=== PATIENT | male | born 1985 ===

== ENCOUNTER 2018-04-09 16:42 | Emergency (ER) | payer OTHER ==
[2018-04-09 16:54] VITALS: BP 124/76; PULSE 60; RESP 16; TEMP 98.6; O2SAT 99
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
--- NOTE | 2018-04-09 18:21 | CT ---
PROCEDURE: CT Cervical Spine without contrast HISTORY: Trauma ; rule out fracture. COMPARISON: None available. TECHNIQUE: Axial computed tomography images were obtained of the cervical spine without the use of intravenous contrast. Coronal and sagittal reformatted images were created and reviewed. Radiation dose: Total exam DLP = 479.67 mGy-cm. This CT exam was performed using one or more of the following dose reduction techniques: Automated exposure control, adjustment of the mA and/or kV according to patient size, and/or use of iterative reconstruction technique. . FINDINGS: VERTEBRAE: No evidence of acute compression fractures no retropulsed fragments. Vertebral bodies exhibit normal stature. There is straightening of the normal cervical lordosis which may be secondary to patient positioning in the gantry however underlying element of mild muscle spasm not excluded. Very minor DISCS/SPINAL CANAL/NEURAL FORAMINA: . Disc space heights are relatively maintained. Minor marginal anterior osteophyte formation seen at several levels. . At the C5-C6 level, there is a small asymmetric slightly broad-based bulge of the posterior annulus slightly larger on the right than left associate with a tiny calcification in the posterior annulus. The disc bulge results in some mild flattening of the ventral surface of the spinal cord. Central canal appears slightly narrowed. Exit foramina adequate. At the C4-C5 level, there is adequate disc height. Minimal central and bilateral bulge of the posterior annulus flattens the ventral surface of the thecal sac resulting with no evidence of cord compression. Central canal appears adequate. Exit foramina are also adequate. The remaining levels exhibit relatively adequate disc height. No disc herniations nor significant disc bulges are identified. Central canal and exit foramina are also adequate PARASPINAL SOFT TISSUES: Paraspinal soft tissues unremarkable OTHER FINDINGS: None. IMPRESSION: No acute fractures. Very minor degenerative spondylosis most notably affecting the at C5-C6 and C6-C7 levels as above the the the the the the
--- NOTE | 2018-04-09 18:28 | CT ---
PROCEDURE: CT HEAD WITHOUT CONTRAST. HISTORY: r/o ICH COMPARISON: None available. TECHNIQUE: Axial computed tomography images were obtained through the head/brain without intravenous contrast. Radiation dose: Total exam DLP = 762.61 mGy-cm. This CT exam was performed using one or more of the following dose reduction techniques: Automated exposure control, adjustment of the mA and/or kV according to patient size, and/or use of iterative reconstruction technique. FINDINGS: HEMORRHAGE: No acute parenchymal, subarachnoid or extra-axial hemorrhage. BRAIN: No mass effect or edema. No atrophy or chronic microvascular ischemic changes. VENTRICLES: Unremarkable. No hydrocephalus. CALVARIUM: Calvarium intact. There is a small bony protuberances along the superolateral margin of the right frontal calvarium at the along the lateral supraorbital region that may represent an exostosis. Additionally, there is a very tiny elliptical shaped scalp lipoma just anterior abutting this small bony protuberances as well. PARANASAL SINUSES: Unremarkable as visualized. No significant inflammatory changes. MASTOID AIR CELLS: Unremarkable as visualized. No inflammatory changes. OTHER FINDINGS: None. IMPRESSION: No acute intracranial hemorrhage.
== END 2018-04-09 19:12 | disposition home or self-care (01) ==
LOC: H.ER 16:42
DX: S09.90XA Unspecified injury of head, initial encounter (principal); V53.5XXA Driver of pick-up truck or van injured in collision with car, pick-up truck or van in traffic accident, initial encounter